=== PATIENT | female | born 2000 | race Caucasian/White ===

== ENCOUNTER 2023-05-22 17:45 | Emergency (ER) | payer OTHER ==
[~2023-05-22] VITALS: Ht 162.6 cm; Wt 56.7 kg
[~2023-05-22 17:45] MED LIST: NOVOLIN 70100 UNIT/1; NOVOLIN R100 UNIT/1
== END 2023-05-22 18:39 | disposition home or self-care (01) ==
LOC: ER 17:45 → EMR PED 17:45 → ER 18:32
DX: G62.9 Polyneuropathy, unspecified (principal)

== ENCOUNTER 2023-10-16 09:52 | Emergency (ER) | payer OTHER ==
[~2023-10-16] VITALS: Ht 160 cm; Wt 62.6 kg
[2023-10-16] MEDS ORDERED: VRAYLAR3 MG (10:26)
[2023-10-16] MEDS ORDERED: LUNESTA1 MG (10:26)
[2023-10-16] MEDS ORDERED: TRAMADOL HCL50 MG PO (10:27)
[2023-10-16] MEDS ORDERED: TOPROL XL50 M1 (10:27)
[2023-10-16] MEDS ORDERED: BUSPIRONE HCL7.5 MG (10:28)
[2023-10-16] MEDS ORDERED: TRAZODONE HCL100 MG PO (10:28)
[2023-10-16] MEDS ORDERED: QUETIAPINE FUM400 M1 (10:28)
[2023-10-16] MEDS ORDERED: PREGABALIN300 MG (10:29)
[2023-10-16 11:20] LABS: HEMATOCRIT 36.1 % (36.0-45.00); HEMOGLOBIN 11.9 g/dL (12.0-15.00); MEAN CELL VOLUME 80.7 fL (80.00-100.00); MEAN CORPUSCULAR HEMOGLOBIN 26.7 pg (27.00-32.0); PLATELET COUNT 234 K/uL (150-450); RED BLOOD COUNT 4.47 M/uL (4.00-6.00)
[2023-10-16 11:41] LABS: CREATININE SERUM 0.54 mg/dL (0.55-1.02); GFR 142.51; POTASSIUM 4.65 mEq/L (3.5-5.1)
== END 2023-10-16 16:45 | disposition home or self-care (01) ==
LOC: ER 09:52
PROVIDERS: General Practice
DX: R60.0 Localized edema (principal); E11.9 Type 2 diabetes mellitus without complications; Z79.4 Long term (current) use of insulin